=== PATIENT | male | born 1990 | race American Indian/Alaskan Native ===

== ENCOUNTER 2020-01-15 18:36 | Emergency (ER) | payer OTHER ==
[2020-01-15] MEDS ORDERED: LIDOCAINE (1%) 10 MG/1 ML VIAL 20 ML MDV INFILTRATI ONE (18:49)
[2020-01-15] MEDS ORDERED: HYDROmorphone 1 MG/1 ML INJ IV ONE (18:49)
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
--- NOTE | 2020-01-15 19:28 | XRay Report ---
LEFT SHOULDER 2 VIEWS INDICATION / CLINICAL INFORMATION: shoulder injury. COMPARISON: None available. FINDINGS: Humeral head is dislocated inferiorly and anteriorly. No obvious fracture, but imaging of the humeral head is limited. Signer Name: Nick Burrows MD Signed: 01/15/2020 7:24 PM Workstation Name: [id number]
[2020-01-15 19:33] VITALS: BP 112/79
--- NOTE | 2020-01-15 21:24 | XRay Report ---
LEFT SHOULDER 2 VIEWS INDICATION / CLINICAL INFORMATION: post reduction. COMPARISON: Earlier this evening FINDINGS: Humeral head is now normally located. No appreciable fracture on this limited exam. Signer Name: Nick Burrows MD Signed: 01/15/2020 9:19 PM Workstation Name: [id number]
== END 2020-01-15 22:15 | disposition home or self-care (01) ==
LOC: EEVIPCON 18:36 → ED 18:36
DX: S43.005A Unspecified dislocation of left shoulder joint, initial encounter (principal); Z79.899 Other long term (current) drug therapy; V29.88XA Motorcycle rider (driver) (passenger) injured in other specified transport accidents, initial encounter; Y93.89 Activity, other specified; Y92.89 Other specified places as the place of occurrence of the external cause; Y99.8 Other external cause status
CPT/HCPCS: 23650; 73030; 96374; 99283; J1170